=== PATIENT | female | born 1975 | race Caucasian/White ===

== ENCOUNTER → 2018-04-20 09:03 | Day surgery (SDC) | payer OTHER ==
[~2018-04-20] VITALS: Ht 177.8 cm; Wt 131.5 kg
--- NOTE | ~2018-04-20 | OP ---
PATIENT NAME: CORWIN MAY MEDICAL RECORD: [id number] :79 [facility] DATE: SURGEON: CIARA HERR MD DATE OF OPERATION: 04/20/2018 SURGEON: Ciara Herr MD ANESTHESIA: General anesthesia, Varinder Hendricks CRNA. PREOPERATIVE DIAGNOSIS: History of a 5-mm proximal right ureteral stone. PROCEDURES: Cystoscopy, right retrograde pyelogram, right ureteroscopy, right ureteral stent insertion 6-Nigerien x 26 cm with string attached. FINDINGS: No radiodense stone was seen. No filling defects or hydronephrosis on the retrograde pyelogram. BLOOD LOSS: None. CLINICAL HISTORY: This is a 42-year-old female, who has not previously had a history of kidney stones. There is no family history of kidney stones or gout. She complained of right flank pain, which was present for some time. Eventually, she went to the Emergency Room, where a CT scan showed a solitary renal stone, which is 5 mm in size and in the right proximal ureter. This was almost 1 month ago. She continued to have ongoing pain and therefore she is scheduled for ureteroscopy and stone extraction. Today, she had a preoperative KUB obtained. She did not have any visible radiodense stones on the KUB. I offered to send her home with potassium citrate to dissolve a possible uric acid stone. She insisted that she was still having 8/10 pain. Therefore, we decided to proceed with the ureteroscopy to confirm whether or not there was any stone present. SHE IS ALLERGIC TO SULFA AND SHELLFISH. She was given Ancef IV procurement professional to the OR. DESCRIPTION OF PROCEDURE: The patient was given induction of general anesthesia. She was placed in the dorsal lithotomy position and prepped and draped. A 21-Nigerien cystoscope with 30-degree lens was used for visualization. She has single ureteral orifices bilaterally. No bladder tumors were seen. No radiodense stones were seen on fluoroscopy. An open-ended ureteral catheter was inserted into the right ureteral orifice and diluted contrast was injected for a retrograde pyelogram. This showed some angulation of the ureter right at the sacral crest. However, there was no hydronephrosis. I decided to proceed in order to make sure that there was no stone present at that point. Through the lumen of the ureteral catheter, we inserted a Sensor wire up into the renal pelvis. The wire was then left in place while the ureteral catheter was entirely removed. Over the wire, we inserted an 18-Nigerien x 4-cm ureteral dilation balloon. This was inflated to 14 atmospheres of pressure for a few seconds and then the pressure was removed. The ureteral dilation balloon was then removed entirely. We switched over to the rigid ureteroscope. Ureteroscopy was performed from the UV junction all the way up into the renal pelvis. No stone was seen. The scope was then removed. The wire was backloaded into the cystoscope. Over the wire, we inserted the 6-Nigerien x 26-cm ureteral stent. Once the stent was in correct position, the wire was entirely withdrawn. The distal end of the stent was pushed into the bladder using a pusher. The proximal end was seen to coil within the renal pelvis. The bladder was emptied through the scope sheath. The scope was then removed. The string OPERATIVE REPORT [id number] CORWIN MAY on the distal end of the stent is still maintained and it was taped to the suprapubic area with a small piece of Tegaderm. The patient will be sent home today. I will see her in followup next week to remove the stent by pulling on the string. TRANSINT:[id number] Voice Confirmation ID: [id number] DOCUMENT ID: [id number] CIARA HERR MD at 0907 CC: [id number] DICTATION DATE: 04/20/181649 [place] [facility]NER: 04/21/18 0002 [facility] 04/20/18 [facility] [address] [place] [address]
[~2018-04-20 09:03] MED LIST: KLONOPIN0.5 MG PO; NORCO 7.5/325 T1 TA1 PO; SINGULAIR10 MG PO; VENTOLIN HFA18 GM INH
[2018-04-20 09:56] LABS: HEMATOCRIT 38.5 % (36.0-48.0); HEMOGLOBIN 12.9 g/dL (12-16); MCH 28.5 pg (26.0-34.0); MCHC 33.5 g/dL (31.0-37.0); MCV 85.2 fL (80.0-100.0); MEAN PLATELET VOLUME 9.2 fL (7.4-10.4); RBC 4.52 10x6/uL (4.00-5.40); RDW 13.7 % (11.5-14.5); WBC 8.5 10x3/uL (4.8-10.8)
[2018-04-20 14:03] VITALS: BP 117/76; Ht 177.8 cm; Wt 131.5 kg
[2018-04-20 14:17] LABS: HCG URINE NEGATIVE (NEGATIVE)
== END | disposition home or self-care (01) ==
LOC: D.OPS 09:03 → D.PAN 11:00 → D.OPS 11:00
PROVIDERS: Anesthesiology; Urology
DX: N20.0 Calculus of kidney (principal)

== ENCOUNTER 2018-08-26 20:12 | Emergency (ER) | payer OTHER ==
[~2018-08-26] VITALS: Ht 177.8 cm; Wt 131.8 kg
[2018-08-26 20:21] VITALS: Ht 177.8 cm; Wt 131.8 kg
[2018-08-26] MEDS ORDERED: BYSTOLIC10 MG (20:22)
[2018-08-26 21:01] LABS: BASOPHILS 0.2 % (0-2); HEMATOCRIT 37.4 % (36.0-48.0); HEMOGLOBIN 12.8 g/dL (12-16); IMMATURE GRANULOCYTES 0.2 % (0-5); LYMPHOCYTES 32.8 % (15-50); MCH 29.4 pg (26.0-34.0); MCHC 34.2 g/dL (31.0-37.0); MCV 85.8 fL (80.0-100.0); MEAN PLATELET VOLUME 9.2 fL (7.4-10.4); MONOCYTES 5.5 % (2-11); NEUTROPHILS 58.3 % (40-80); PLATELET COUNT 297 10x3/uL (130-400); RBC 4.36 10x6/uL (4.00-5.40); RDW 13.1 % (11.5-14.5); WBC 11.1 10x3/uL (4.8-10.8)
[2018-08-26 21:45] LABS: ALBUMIN 3.3 g/dL (3.4-5.0); ALKALINE PHOSPHATASE 55 U/L (46-116); ALT (SGPT) 18 U/L (10-68); CALC OSMOLALITY 277 mosm/kg (275-300); CALCIUM 8.2 mg/dL (8.5-10.1); CARBON DIOXIDE 27.3 mmol/L (21.0-32.0); CHLORIDE - SERUM 104 mmol/L (98-107); CREATINE KINASE 161 UL (21-215); CREATININE - SERUM 0.7 mg/dL (0.6-1.3); GLUCOSE 127 mg/dL (74-106); POTASSIUM - SERUM 3.4 mmol/L (3.5-5.1); PROTEIN - SERUM 6.5 g/dL (6.4-8.2); SODIUM 139 mmol/L (136-145); TROPONIN-I < 0.017 ng/mL (0.000-0.060); UREA NITROGEN 8 mg/dL (7-18); eGFR NON AFRICAN AMERICAN > 90 mL/min (90-120)
[2018-08-26 21:45] LABS: APPEARANCE CLEAR (CLEAR); BILIRUBIN NEGATIVE (NEGATIVE); COLOR YELLOW (YELLOW); EPITHELIAL CELLS RARE /hpf (0-5); GLUCOSE NEGATIVE (NEGATIVE); KETONE NEGATIVE (NEGATIVE); NITRITE NEGATIVE (NEGATIVE); PROTEIN 1+ mg/dL (NEGATIVE); RED CELLS - URINE RARE /hpf (0-5); UROBILINOGEN NORMAL (NORMAL); WHITE CELLS - URINE NSEEN /hpf (0-5)
[2018-08-26 21:47] LABS: UDS - AMPHET NEGATIVE QUAL (NEGATIVE); UDS - BARB NEGATIVE QUAL (NEGATIVE); UDS - BENZO NEGATIVE QUAL (NEGATIVE); UDS - COCAINE NEGATIVE QUAL (NEGATIVE); UDS - OPIATE POSITIVE QUAL (NEGATIVE); UDS - PCP NEGATIVE QUAL (NEGATIVE); UDS - THC POSITIVE QUAL (NEGATIVE)
[2018-08-27 01:23] VITALS: BP 122/78
== END 2018-08-27 01:24 | disposition home or self-care (01) ==
LOC: D.ER 20:12
PROVIDERS: Family Medicine
DX: R00.2 Palpitations (principal); R06.00 Dyspnea, unspecified

== ENCOUNTER 2019-09-19 20:19 | Observation (INO) | payer OTHER ==
[~2019-09-19] VITALS: Ht 177.8 cm; Wt 131.5 kg
--- NOTE | 2019-09-19 19:30 | NUR ---
REPORT RECIEVED AND ROUNDING COMPLETE. PATIENT LAYING IN BED, A&O X4, REPORTS NO PAIN AT THIS TIME. RIGHT AC PIV THAT IS RUNNING FLUIDS, PIV SHOWS NO S/SX OF INFILTRATION AT THIS TIME. NO DISTRESS AT THIS TIME. NO NEEDS AT THIS TIME. CALL LIGHT WITHIN REACH BED IN LOWEST LOCKED POSITION.
[~2019-09-19 20:19] MED LIST changes: +BYSTOLIC10 MG
[2019-09-19 21:04] LABS: BASOPHILS 0.3 % (0-2); EOSINOPHILS 1.2 % (0-7); HEMATOCRIT 43.7 % (36.0-48.0); HEMOGLOBIN 14.6 g/dL (12-16); IMMATURE GRANULOCYTES 0.3 % (0-5); LYMPHOCYTES 17.6 % (15-50); MCH 29.9 pg (26.0-34.0); MCHC 33.4 g/dL (31.0-37.0); MCV 89.5 fL (80.0-100.0); MONOCYTES 9.1 % (2-11); NEUTROPHILS 71.5 % (40-80); PLATELET COUNT 293 10x3/uL (130-400); RBC 4.88 10x6/uL (4.00-5.40); WBC 10.4 10x3/uL (4.8-10.8)
[2019-09-19 21:29] LABS: CALC OSMOLALITY 270 mosm/kg (275-300); CALCIUM 9.3 mg/dL (8.5-10.1); CARBON DIOXIDE 24.1 mmol/L (21.0-32.0); CHLORIDE - SERUM 102 mmol/L (98-107); CREATININE - SERUM 0.7 mg/dL (0.6-1.3); GLUCOSE 107 mg/dL (74-106); POTASSIUM - SERUM 4.1 mmol/L (3.5-5.1); SODIUM 136 mmol/L (136-145); UREA NITROGEN 9 mg/dL (7-18); eGFR NON AFRICAN AMERICAN > 90 mL/min (90-120)
[2019-09-19 21:35] LABS: ALBUMIN 3.9 g/dL (3.4-5.0); ALKALINE PHOSPHATASE 68 U/L (30-120); ALT (SGPT) 23 U/L (10-68); BILIRUBIN - TOTAL 0.54 mg/dL (0.2-1.3); C-REACTIVE PROTEIN 6.2 mg/dL (0.0-0.9); PROTEIN - SERUM 7.2 g/dL (6.4-8.2)
[2019-09-20] VITALS: BP 138/87
[2019-09-20] MEDS ORDERED: TOPROL XL25 MG PO (00:43)
--- NOTE | 2019-09-20 00:45 | NUR ---
PATIENT TO THE ROOM. GAVE PATIENT AN ICE PACK FOR HER FACE. AT BEDSIDE. RIGHT FOREARM PIV THAT IS SALINE LOCKED, PAIN IS A THROBBING, CALL LIGHT WITHIN REACH AND BED IN LOWEST LOCKED POSITION.
[2019-09-20 01:10] VITALS: BP 138/87; BMI 41.6
--- NOTE | 2019-09-20 02:32 | NUR ---
I have reviewed this patient and I concur with the Shift Assessment completed by the Licensed Practical Nurse today this shift.
[2019-09-20 04:00] VITALS: BP 80/53
[2019-09-20 09:16] VITALS: BP 129/50
[2019-09-20 09:50] VITALS: Ht 177.8 cm; Wt 131.5 kg
[2019-09-20] MEDS ORDERED: CLINDAMYCIN HC300 MG PO (11:37)
--- NOTE | 2019-09-20 11:44 | NUR ---
UPON ADMIT, PATIENT HAS NOT HAD A FLU SHOT. STATES SHE WAS IN THE "MIDDLE OF A KIDNEY STONE" AND DID NOT GET ONE. REFUSED IT UPON DISCHARGE.
--- NOTE | 2019-09-20 12:53 | NUR ---
PT DISCHARGED HOME VIA WHEELCHAIR WITH FAMILY. PIV REMOVED WITH CATHETER TIP FULLY INTACT. PT SIGNED PROPER DISCHARGE INSTRUCTIONS AND REMOVED ALL VALUABLES FROM THE ROOM.
== END 2019-09-20 12:54 | disposition home or self-care (01) ==
LOC: D.ER 20:19 → OBSVTIME 23:36 → D.M2 23:36
PROVIDERS: Family Medicine; ADMIT Internal Medicine Nephrology; ATTEND Internal Medicine Nephrology
DX: L03.211 Cellulitis of face (principal); F17.203 Nicotine dependence unspecified, with withdrawal; J45.909 Unspecified asthma, uncomplicated